=== PATIENT | female | born 1975 | race Caucasian/White ===

== ENCOUNTER 2023-05-15 12:43 | Inpatient (IN) | payer OTHER ==
[2023-05-15 13:47] VITALS: BMI 16.9
[2023-05-15] MEDS ORDERED: ACETAMINOPHEN 325 MG TABLET (FP) PO PRN (14:46)
[2023-05-15] MEDS ORDERED: BISMUTH SUBSALICYLATE 524 MG/30 ML PO PRN (14:46)
[2023-05-15] MEDS ORDERED: MAG HYDROX/AL HYDROX/SIMETH 30 ML UNIT-DOSE CUP PO PRN (14:46)
[2023-05-15] MEDS ORDERED: BENZOCAINE/MENTHOL (CHLORASEPTIC ) LOZENGE MM PRN (14:46)
[2023-05-15] MEDS ORDERED: IBUPROFEN 400 MG TABLET (FP) PO PRN (14:46)
[2023-05-15] MEDS ORDERED: hydrOXYzine PAMOATE 25 MG CAPSULE (FP) PO PRN (14:46)
[2023-05-15] MEDS ORDERED: DICYCLOMINE HCL 10 MG CAPSULE PO PRN (14:46)
[2023-05-15] MEDS ORDERED: ONDANSETRON *ODT* 4 MG TABLET SL PRN (14:46)
[2023-05-15] MEDS ORDERED: MAGNESIUM HYDROX 2400MG/30ML ORAL SUSPENSION 30 ML CUP PO PRN (14:46)
[2023-05-15] MEDS ORDERED: P-EPHED 60MG/TRIPROLIDI 2.5MG TABLET PO PRN (14:46)
[2023-05-15] MEDS ORDERED: IBUPROFEN 600 MG TABLET (FP) PO PRN (14:46)
[2023-05-15] MEDS ORDERED: NALOXONE HCL (KLOXXADO) 8 MG SPRAY NS PRN (14:46)
[2023-05-15] MEDS ORDERED: NICOTINE POLACRILEX 2 MG GUM BUC PRN (14:46)
[2023-05-15] MEDS ORDERED: NALOXONE HCL 0.4 MG/ML VIAL IM PRN (14:46)
[2023-05-15] MEDS ORDERED: LOPERAMIDE HCL 2 MG CAPSULE PO PRN (14:46)
[2023-05-15] MEDS ORDERED: BENZONATATE 200 MG CAPSULE PO PRN (14:46)
[2023-05-15] MEDS ORDERED: POLYETHYLENE GLYCOL (HEALTHYLAX) 3350 17 GM PACKET PO PRN (14:46)
[2023-05-15] MEDS: THIAMINE 100 MG TABLET PO SCH (22:03)
[2023-05-15] MEDS: GABAPENTIN 300 MG CAPSULE PO SCH (22:03)
[2023-05-15] MEDS: MELATONIN 5 MG TABLETS PO SCH (23:02)
[2023-05-16] MEDS: PRENATAL VITAMINS W/ FOLIC ACID TABLET (FP) PO SCH (09:40)
[2023-05-16] MEDS: cloNIDine HCL 0.1 MG TABLET PO SCH (09:40)
[2023-05-16] MEDS: methaDONE HCL 10 MG TABLET PO ONE (09:40)
[2023-05-16] MEDS ORDERED: methaDONE HCL 10 MG TABLET PO PRN (10:52)
[2023-05-16 12:33] LABS: POTASSIUM 4.4 mmol/L (3.5-5.1)
[2023-05-16 12:35] LABS: HEMATOCRIT 38.9 % (32.4-45.2); HEMOGLOBIN 12.9 GM/dL (10.7-15.3); MCH 28.5 pg (25.7-33.7); MCHC 33.1 g/dl (32.0-36.0); MEAN CELL VOLUME 86.1 fl (80-96); MEAN PLT VOLUME 6.9 fl (7.5-11.1); PLATELET COUNT 345 10^3/uL (134-434); RBC 4.52 M/mm3 (3.60-5.2); RDW 13.7 % (11.6-15.6); WHITE BLOOD COUNT 6.4 K/mm3 (4.0-10.0)
[2023-05-16 12:38] LABS: CALCIUM 9.2 mg/dL (8.5-10.1)
[2023-05-16 12:39] LABS: ALBUMIN 3.1 g/dl (3.4-5.0); BLOOD UREA NITROGEN 15.7 mg/dL (7-18)
[2023-05-16 12:42] LABS: CREATININE 0.6 mg/dL (0.55-1.3)
[2023-05-16 12:43] LABS: BILIRUBIN,TOTAL 0.2 mg/dL (0.2-1)
[2023-05-16] MEDS ORDERED: ALBUTEROL SO4 HFA INHALER IH ONE (17:20)
[2023-05-16] MEDS: guaiFENesin 600 MG TABLET.ER (FP) PO PRN (17:20)
[2023-05-16] MEDS: METHOCARBAMOL 500 MG TABLET PO PRN (17:21)
[2023-05-16] MEDS: ALBUTEROL SO4 0.083% IH SOL 2.5 MG/3 ML VIAL.NEB. NEB PRN (22:25)
[2023-05-17] MEDS: methaDONE 40 MG, methaDONE 10 MG PO ONE (06:10)
[2023-05-17 06:27] VITALS: RESP 16
[2023-05-17] MEDS: GABAPENTIN 300 MG CAPSULE PO ONE (12:37)
[2023-05-17 12:57] VITALS: BP 107/57; PULSE 93; TEMP 97.7
[2023-05-18] MEDS ORDERED: cloNIDine HCL 0.1 MG TABLET PO PRN
[2023-05-18] MEDS ORDERED: methaDONE 40 MG, methaDONE 20 MG PO ONE (06:00)
[2023-05-19] MEDS ORDERED: methaDONE 40 MG, methaDONE 30 MG PO ONE (06:00)
[2023-05-20] MEDS ORDERED: methaDONE HCL 40 MG DISPERSABLE TABLET PO ONE (06:00)
[2023-05-21] MEDS ORDERED: methaDONE 80 MG, methaDONE 10 MG PO ONE (06:00)
== END 2023-05-17 13:00 | disposition left against medical advice (07) | DRG 770 ==
LOC: YASAS 12:43 → Y6N 15:09
PROVIDERS: ADMIT Allergy & Immunology; ATTEND Surgery
PROC: HZ2ZZZZ Detoxification Services for Substance Abuse Treatment (ICD-10-PCS; principal; 2023-05-15)
DX: F11.23 Opioid dependence with withdrawal (principal); F14.20 Cocaine dependence, uncomplicated; F17.210 Nicotine dependence, cigarettes, uncomplicated; F19.282 Other psychoactive substance dependence with psychoactive substance-induced sleep disorder; F41.9 Anxiety disorder, unspecified; F32.9 Major depressive disorder, single episode, unspecified; G40.909 Epilepsy, unspecified, not intractable, without status epilepticus; J45.20 Mild intermittent asthma, uncomplicated; Z56.0 Unemployment, unspecified; Z88.0 Allergy status to penicillin
CPT/HCPCS: 0241U-QW; 36415; 80053; 81025; 85027; 86780; 94640